=== PATIENT | female | born 1955 | race American Indian/Alaskan Native ===

== ENCOUNTER 2017-04-08 10:41 | Outpatient (CLI) | payer BC, MEDICARE ==
--- NOTE | 2017-04-08 15:02 | Fluoroscopy Report ---
SMALL BOWEL SERIES: History: Abnormal CT, abdominal mass, pancreatic cancer. No recent comparison at this facility. [employer] film of the abdomen is unremarkable. A LAP band device and multiple surgical clips in the upper abdomen are noted, correlate with surgical history. Transit time of the oral contrast through the small bowel loops is borderline delayed at 2 hours. There is no evidence for abnormal dilatation, space occupying mass or intraluminal mass. The terminal ileum is normal. The appendix was not confidently identified. IMPRESSION: Unremarkable exam. No abnormality is detected on small bowel series.
== END 2017-04-08 10:42 | disposition home or self-care (01) ==
LOC: FLUORO 10:41
PROVIDERS: ATTEND Internal Medicine Gastroenterology
DX: R93.5 Abnormal findings on diagnostic imaging of other abdominal regions, including retroperitoneum (principal); I10 Essential (primary) hypertension; F17.200 Nicotine dependence, unspecified, uncomplicated; Z85.07 Personal history of malignant neoplasm of pancreas
CPT/HCPCS: 74250